=== PATIENT | female | born 1965 | race Caucasian/White ===

== ENCOUNTER 2021-02-25 12:06 | Outpatient (CLI) | payer OTHER, SELFPAY ==
--- NOTE | ~2021-02-25 | MM_ITS ---
EXAMINATION: MM screening gary BI w chrisotpher HISTORY: Screening mammogram TECHNIQUE: Craniocaudal and mediolateral oblique 3-D tomosynthesis images were obtained and synthetic 2-D images were generated. CAD analysis was submitted and interpreted. COMPARISON: , 02/03/2018, 01/06,017 bilateral screening mammogram examinations BREAST PARENCHYMAL COMPOSITION: The breasts are almost entirely fatty. FINDINGS: There is no evidence of suspicious mass, calcification, or architectural distortion to sugg est malignancy in either breast. There has been no suspicious interval change. IMPRESSION: 1. No mammographic evidence of malignancy. 2. Recommend routine screening mammography in one year. Reviewed, dictated and finalized at location A. NICAL SOLUTION ARCHITECT
== END 2021-02-25 12:07 | disposition home or self-care (01) ==
LOC: CHSIMG 12:09
PROVIDERS: PCP Internal Medicine; Visit Provider Internal Medicine
DX: Z12.31 Encounter for screening mammogram for malignant neoplasm of breast (principal)
CPT/HCPCS: 77063; 77067

== ENCOUNTER 2021-09-09 09:58 | Outpatient (CLI) | payer OTHER, SELFPAY ==
--- NOTE | ~2021-09-09 | XR_ITS ---
EXAMINATION: XR chest 2V DATE: 09/09/2021 10:13 INDICATION: Cough. Fever. TECHNIQUE: Frontal and lateral views of the chest were obtained. COMPARISON: Chest 2 views 07/13/2015 FINDINGS: The chest demonstrates clear lungs without pneumonia, pleural effusion, or pneumothorax. Th e heart size is normal. IMPRESSION: 1. No acute cardiopulmonary disease. Reviewed, dictated and finalized at location A.
[2021-09-09 10:31] LABS: Basophils Absolute Auto 0.06 K/mm3 (0.00-0.10); Basophils Percent Auto 0.6 % (0.0-1.0); Eosinophils Absolute Auto 0.37 K/mm3 (0.02-0.50); Eosinophils Percent Auto 3.9 % (1.0-6.0); Hematocrit 44.3 % (35.0-49.0); Hemoglobin 14.1 g/dL (12.0-15.0); Immature Granulocyte Absolute 0.03 K/mm3 (0.00-0.00); Immature Granulocyte Percent A 0.3 % (0.0-0.0); Immature Platelet Fraction Pct 8.7 % (1.0-7.0); Lymphocytes Absolute Auto 1.46 K/mm3 (1.10-4.50); Lymphocytes Percent Auto 15.4 % (18.0-42.0); Mean Corpuscular HGB Conc 31.8 g/dL (32.0-36.0); Mean Corpuscular Hemoglobin 28.3 pg (27.0-31.0); Mean Platelet Volume 12.4 fl (9.2-11.8); Monocytes Absolute Auto 0.42 K/mm3 (0.10-0.90); Monocytes Percent Auto 4.4 % (2.0-11.0); Neutrophils Absolute Auto 7.2 K/mm3 (1.7-7.2); Neutrophils Percent Auto 75.4 % (50.0-70.0); Platelet Count Result 111 K/mm3 (150-420); Red Blood Count 4.98 M/mm3 (4.20-5.40); Red Cell Distribution Width 13.3 % (11.6-14.4); White Blood Count 9.5 K/mm3 (4.8-10.8)
[2021-09-09 10:41] LABS: Alanine Aminotransferase 23 U/L (14-59); Albumin Level 3.7 g/dL (3.4-5.0); Alkaline Phosphatase 85 U/L (46-116); Anion Gap 6 mmol/L (8-16); Aspartate Amino Transferase 18 U/L (15-37); Bilirubin,Total 0.3 mg/dL (0.00-1.00); Blood Urea Nitrogen 11 mg/dL (7-18); Carbon Dioxide 27 mmol/L (21-32); Chloride 106 mmol/L (98-108); Estimated Glomerular Filt Rate > 60; Glucose 102 mg/dL (70-99); Osmolality Calculated 287 mOsm/kg (285-295); Potassium 4.1 mmol/L (3.5-5.1); Sodium 139 mmol/L (136-145); Total Protein 7.2 g/dL (6.4-8.2)
== END 2021-09-09 09:59 | disposition home or self-care (01) ==
LOC: CHSIMG 10:00
PROVIDERS: PCP Internal Medicine; Visit Provider Internal Medicine
DX: R05.9 Cough, unspecified (principal); R09.89 Other specified symptoms and signs involving the circulatory and respiratory systems
CPT/HCPCS: 36415; 71046; 80053; 85025; 85055

== ENCOUNTER 2021-11-04 11:05 | Outpatient (CLI) | payer OTHER, SELFPAY ==
[2021-11-04 12:33] LABS: Influenza A QL RT-PCR Negative (Negative); Influenza B QL RT-PCR Negative (Negative); SARS-CoV-2 RNA PCR Positive (Negative)
== END 2021-11-04 11:06 | disposition home or self-care (01) ==
LOC: CHSLAB 11:08
PROVIDERS: PCP Internal Medicine; Visit Provider Nurse Practitioner Family
DX: U07.1 COVID-19 (principal); J02.9 Acute pharyngitis, unspecified; R50.9 Fever, unspecified
CPT/HCPCS: 36415; 87081; 87502; 87880; C9803; U0003; U0005

== ENCOUNTER 2023-05-30 11:48 | Outpatient (CLI) | payer OTHER, SELFPAY ==
--- NOTE | ~2023-05-30 | MM_ITS ---
EXAMINATION: MM screening [facility] BI w christopher HISTORY: Screening mammogram TECHNIQUE: Craniocaudal and mediolateral oblique 3-D tomosynthesis images were obtained and synthetic 2-D images were generated. CAD analysis was submitted and interpreted. COMPARISON: 02/25/2021, 01/30/2019, 01/17/2018 BREAST PARENCHYMAL COMPOSITION: The breasts are almost entirely fatty. FINDINGS: No suspicious mass, calcification, or architectural distortion are identified in either josé luis ast to suggest malignancy. There has been no suspicious interval change. IMPRESSION: 1. No mammographic evidence of malignancy. 2. Recommend routine screening mammography in one year. BI-RADS Category 1: Negative Reviewed, dictated and finalized at location A. GER TITLE
--- NOTE | ~2023-05-30 | DEXA_ITS ---
Bone Density Report Name: DEMETRIUS RIZO Age: 57 Sex: Female Ethnicity: White Date of : 1965 Indication: postmenopausal; screening for osteoporosis; parental hip fracture; height loss; hysterectomy; Referring Provider: Uma Baltazar Study: Bone densitometry was performed. Exam Date: May 30, 2023 Accession number: [id number] Bone Density: Region BMD T-score Z-score Classification AP Spine(L1-L4) 0.941 -1.0 0.1 Normal Femoral Neck (Left) 0.634 -1.9 -0.9 Osteopenia Total Hip (Left) 0.870 -0.6 0.1 Normal Femoral Neck (Right) 0.663 -1.7 -0.6 Osteopenia Total Hip (Right) 0.811 -1.1 -0.4 Osteopenia Femoral Neck Mean 0.648 -1.8 -0.7 Osteopenia Total Hip Mean 0.840 -0.8 -0.1 Normal World Health Organization criteria for BMD impression classify patients as: Normal (T-score at or above -1.0), Osteopenia (T-score between -1.0 and -2.5), or Osteoporosis (T-score at or below -2.5). 10-year Fracture Risk(1): Major Osteoporotic Fracture 14% Hip Fracture 1.4% Reported Risk Factors: [place] (), Neck BMD=0.634, BMI=33.2, parental fracture, smoking (1) FRAX(R) Version 3.08. Fracture probability calculated for an untreated patient. Fracture probability may be lower if the patient has received treatment. Clinical Information Provided by Patient: Parent has had a hip fracture Smokes Has used the following medications: Vitamin D Has the following medical conditions: Hysterectomy Patient maximum height was 62 Menopause Age: 50 No regular weight bearing exercise Does not regularly consume dairy products Drinks caffeinated beverages Onset of menses at age 16 Number of children 2 Impression: The patient has low bone mass, based on the Left Femoral Neck T-score. The patient has risk factors, including: parental hip fracture, smoking. Discussion: BONE DENSITY IS LOW AT ONE OR MORE SKELETAL SITES. This patient's lowest T-score is low at one or more skeletal sites. It meets the World Health Organization's (WHO) criteria for ?low bone mass? (T-score between -1.0 and -2.5). The patient's 10-year risk of fracture as calculated by FRAX is less than the threshold where pharmacological therapy is recommended by the National Osteoporosis Foundation (NOF). However, all treatment decisions require clinical judgment and consideration of individual patient factors, including patient preferences, comorbidities, previous drug use, risk factors not captured in the FRAX model (e.g., frailty, falls, vitamin D deficiency, increased bone turnover, interval significant decline in bone density) and possible under or overestimation of fracture risk by FRAX. The patient should follow a healthful lifestyle (good nutrition with adequate calcium and vitamin D, and appropriate weight-jeramie
== END 2023-05-30 11:49 | disposition home or self-care (01) ==
LOC: CHSIMG 11:49
PROVIDERS: PCP Internal Medicine; Visit Provider Internal Medicine
DX: Z12.31 Encounter for screening mammogram for malignant neoplasm of breast (principal); Z78.0 Asymptomatic menopausal state; M85.89 Other specified disorders of bone density and structure, multiple sites
CPT/HCPCS: 77063; 77067; 77080

== ENCOUNTER 2024-02-17 11:23 | Outpatient (CLI) | payer OTHER, SELFPAY ==
[2024-02-17 12:12] LABS: SARS-CoV-2 RNA PCR Positive (Negative)
== END 2024-02-17 11:24 | disposition home or self-care (01) ==
LOC: CHSLAB 11:24
PROVIDERS: PCP Internal Medicine; Visit Provider Internal Medicine
DX: U07.1 COVID-19 (principal); R50.9 Fever, unspecified
CPT/HCPCS: 87635

== ENCOUNTER 2024-08-08 12:05 | Outpatient (CLI) | payer OTHER, SELFPAY ==
--- NOTE | ~2024-08-08 | MM_ITS ---
EXAMINATION: MM screening g[facility] BI w christopher HISTORY: Screening TECHNIQUE: Craniocaudal and mediolateral oblique 3-D tomosynthesis images were obtained and synthetic 2-D images were generated. CAD analysis was submitted and interpreted. COMPARISON: Comparison to multiple prior studies sequentially, with oldest reviewed study dated 12/27. BREAST PARENCHYMAL COMPOSITION: Not Dense: The breasts are almost entirely fatty. FINDINGS: There is no evidence of suspicious mass, calcification, or architectural distortion to sugg est malignancy in either breast. There has been no suspicious interval change. IMPRESSION: 1. No mammographic evidence of malignancy. 2. Recommend routine screening mammography in one year. BI-RADS Category 1: Negative Reviewed, dictated and finalized at location A.
--- OUTSIDE RECORDS SUMMARY | 2024-08-08 13:19 | XMS_ITS | Referral Summary ---
Author Organization [facility] Address [address] [address] Phone Care Team Providers Care Ecommerce Analyst Name Role Phone Modesta Genao MD Unavailable [phone] Uma Baltazar MD Primary Care Provider [phone] Allergies Active Allergy Reactions Criticality Noted Date Comments Morphine Hives,Itching Medium Nsaids (Non-Steroidal Anti-Inflammatory Drug) Stomach upset Low Penicillins Hives Medium Tramadol Nausea & Vomiting Low Medications ALPRAZolam (XANAX) 0.5 mg tablet TAKE 1/2-1 TABLET BY MOUTH EVERY 6-8 HOURS NEEDED FOR ACUTE ANXIETY 0 10/15/2016 Active lisinopril (PRINIVIL,ZESTR IL) 40 mg tablet Take 40 mg by mouth daily. 0 10/14/2016 Active acetaminophen-c odeine (TYLENOL with CODEINE #3) 300-30 mg per tablet TAKE 1 TABLET BY MOUTH EVERY 4 HOURS NEEDED 0 01/11/2017 Active Active Problems Problem Noted Date Diagnosed Date Obesity (BMI 30-39.9) 02/10/2017 Hypertension 02/10/2017 Celiac disease 08/31/2013 Overview (07/20/2016): Celiac disease History of gastric ulcer 08/31/2013 Overview (07/22/2016): Hx of gastric ulcer Social History Tobacco Use Types Packs/Day Years Used Date Smoking Tobacco: Former Cigarettes 0.5 28 0 12/17/1987 - 12/17/2015 Smokeless Tobacco: Never Tobacco Cessation:Counseling Given: Yes Comments:Smoking History Packs/day: 0 Packs Alcohol Use Standard Drinks/Week Comments Yes 0 (1 standard drink = 0.6 oz pur e alcohol) socially Personal Safety Answer Date Recorded Getting School Help Needed Not on file 06/30 Comments No Sex and Gender Information Value Date Recorded Sex Assigned at Not on file Legal Sex Female 11:57 PM INSTRUMENT AND CONTROLS TECHNICIAN Gender Identity Not on file Sexual Orientation Not on file 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 Not on file Not on file Last Filed Vital Signs Vital Sign Reading Time Taken Comments Blood Pressure 120/92 03/30/2017 1:55 PM INSTRUMENT AND CONTROLS TECHNICIAN Pulse 102 01/19/2017 3:23 PM CDT Temperature - - Respiratory Rate 16 01/19/2017 3:23 PM CDT Oxygen Saturation 98% 01/19/2017 3:23 PM CDT Inhaled Oxygen Concentration - - Weight 75.3 kg (166 lb) 03/30/2017 1:55 PM INSTRUMENT AND CONTROLS TECHNICIAN Height 156.2 cm (5' 1.5 ) 11/10/2016 2:43 PM CDT Body Mass Index 30.86 11/10/2016 2:43 PM CDT Plan of Treatment Not on file Insurance Care Teams Ecommerce Analyst Relationship Specialty Start Date End Date Uma Baltazar MD [address] [place] [address] PCP - General Internal Medicine 11/10/16 Modesta Genao MD [address] [place] [address] Obstetrics and Gynecology 11/10/16
--- OUTSIDE RECORDS SUMMARY | 2024-08-08 13:19 | XMS_ITS | Clinical Summary ---
Author Organization [facility] Address [address] [address] Phone Care Team Providers Care Mathematics Professor Name Role Phone Modesta Genao MD Unavailable [phone] Uma Baltazar MD Primary Care Provider [phone] Allergies Active Allergy Reactions Criticality Noted Date [...] 08/31/2013 Overview (07/22/2016): Hx of gastric ulcer Surgical History Surgery Date Site/Laterality Comments APPENDECTOMY 04/17/1999 - 04/16/2000 HERNIA REPAIR 04/17/2003 - 04/16/2004 TUBAL LIGATION 04/17/2003 - 04/16/2004 ENDOMETRIAL ABLATION W/ NOVASURE 04/17/2005 - 04/16/2006 SMALL BOWEL RESECTION 04/17/2003 - 04/16/2004 intestinal lipoma-->intussusceptio n HYSTERECTOMY 04/17/2016 - 04/16/2017 Pelvic pain, irregular menses - [facility]- Medical History Medical History Date Comments Celiac disease 2010 Ulcer of intestine 2002 duodenal ulce r Hypertension Anxiety Seasonal allergies Family History Medical History Relation Name Comments Diabetes type II Father Heart attack Father Hypertension Father Diabetes type II Maternal Grandfather Melanoma Maternal Grandfather COD Diabetes type II Maternal Grandmother Diabetes Mother Hypertension Mother Hypothyroidism Mother Relation Name Status Comments Father Maternal Grandfather Maternal Grandmother Mother Social History Tobacco Use Types Packs/Day Years [...] on file Legal Sex Female 11:57 PM BRAKE OPERATOR HEAVY DUTY Gender Identity Not on file Sexual Orientation Not on file 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 file Not on file Not on file Obstetrics History Para Term AB IAB SAB Ectopic Multiple Livin g Live Births 4 3 3 0 1 0 1 0 0 3 3 Date Outcome GA Total Labor Labor/2nd/3rd Weight Sex Type Anes PTL Rose A1 A5 Name Clin Term Term Term SAB Last Filed Vital Signs Vital Sign Reading Time Taken Comments Blood Pressure 120/92 03/30/2017 1:55 PM BRAKE OPERATOR HEAVY DUTY Pulse 102 01/19/2017 3:23 PM CDT Temperature - - Respiratory Rate 16 01/19/2017 3:23 PM CDT Oxygen Saturation 98% 01/19/2017 3:23 PM CDT Inhaled Oxygen Concentration - - Weight 75.3 kg (166 lb) 03/30/2017 1:55 PM BRAKE OPERATOR HEAVY DUTY Height 156.2 cm (5' 1.5 ) 11/10/2016 2:43 PM CDT Body Mass Index 30.86 11/10/2016 2:43 PM CDT Plan of Treatment Not on file Insurance [facility] H[facility]/PPO Address: [place] [id number] [place] [id number] Care Teams Mathematics Professor Relationship Specialty Start Date End Date Uma Baltazar MD [address] [place] [address] PCP - General Internal Medicine 11/10/16 Modesta Genao MD [address] [place] [address] Obstetrics and Gynecology 11/10/16
== END 2024-08-08 12:06 | disposition home or self-care (01) ==
LOC: CHSIMG 12:06
PROVIDERS: PCP Internal Medicine; Visit Provider Internal Medicine
DX: Z12.31 Encounter for screening mammogram for malignant neoplasm of breast (principal)
CPT/HCPCS: 77063; 77067

== ENCOUNTER 2024-09-23 10:20 | Outpatient (CLI) | payer OTHER, SELFPAY ==
--- NOTE | ~2024-09-23 | CT_ITS ---
CT Scan of the Chest without Contrast: Clinical Indication: Lung cancer screening, nicotine dependence Technique: Contiguous sections were acquired throughout the chest without intravenous contrast. Dose reduction technique was used on this scan by utilizing automated exposure control and iterative recon struction technique. The dose-length product (DLP) was 135.47 mGy-cm. Findings: There is no evidence of any significant mediastinal, hilar or axillary lymphadenopathy. The mediastin al soft tissues appear normal. There is no evidence of pleural or pericardial effusion. The lungs are clear. No pulmonary nodules or infiltrates are noted. Images through the upper abdomen reveal no abnormalities. Impression: Lung RADS 1: Negative. 12 month follow-up screening CT advised. Reviewed, dictated and finalized at location . Impression: Lung RADS 1: Negative. 12 month follow-up screening CT advised.
--- OUTSIDE RECORDS SUMMARY | 2024-09-23 11:35 | XMS_ITS | Referral Summary ---
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 Not on file Not on file Last Filed Vital Signs Vital Sign Reading Time Taken Comments Blood Pressure 120/92 03/30/2017 1:55 PM INSTITUTION LIBRARIAN Pulse 102 01/19/2017 3:23 PM CDT Temperature - - Respiratory Rate 16 01/19/2017 3:23 PM CDT Oxygen Saturation 98% 01/19/2017 3:23 PM CDT Inhaled Oxygen Concentration - - Weight 75.3 kg (166 lb) 03/30/2017 1:55 PM INSTITUTION LIBRARIAN Height 156.2 cm (5' 1.5) 11/10/2016 2:43 PM CDT Body Mass Index 30.86 11/10/2016 2:43 PM CDT Plan of Treatment Not on file Insurance Care Teams Liner Man Relationship Specialty Start Date End Date Uma Baltazar MD [address] [place] [address] PCP - General Internal Medicine 11/10/16 Modesta Genao MD [address] [place] [address] Obstetrics and Gynecology 11/10/16
--- OUTSIDE RECORDS SUMMARY | 2024-09-23 11:35 | XMS_ITS | Clinical Summary ---
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 Not on file Not [...] Comments Blood Pressure 120/92 03/30/2017 1:55 PM DIE MOUNTER Pulse 102 01/19/2017 3:23 PM CDT Temperature - - Respiratory Rate 16 01/19/2017 3:23 PM CDT Oxygen Saturation 98% 01/19/2017 3:23 PM CDT Inhaled Oxygen Concentration - - Weight 75.3 kg (166 lb) 03/30/2017 1:55 PM DIE MOUNTER Height 156.2 cm (5' 1.5) 11/10/2016 2:43 PM CDT Body Mass Index 30.86 11/10/2016 2:43 PM CDT Plan of Treatment Not on file Insurance Care Teams Instructor Adjunct Surgical Technician Relationship Specialty Start Date End Date Uma Baltazar MD [address] [place] [address] PCP - General Internal Medicine 11/10/16 Modesta Genao MD [address] [place] [address] Obstetrics and Gynecology 11/10/16
== END 2024-09-23 10:21 | disposition home or self-care (01) ==
LOC: CHSIMG 10:21
PROVIDERS: PCP Internal Medicine; Visit Provider Internal Medicine
DX: Z12.2 Encounter for screening for malignant neoplasm of respiratory organs (principal); Z87.891 Personal history of nicotine dependence
CPT/HCPCS: 71271

== ENCOUNTER 2024-09-24 08:22 | Outpatient (CLI) | payer OTHER, SELFPAY ==
--- OUTSIDE RECORDS SUMMARY | 2024-09-24 08:32 | XMS_ITS | Referral Summary ---
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 Not on file Not on file Last Filed Vital Signs Vital Sign Reading Time Taken Comments Blood Pressure 120/92 03/30/2017 1:55 PM TECHNICAL TRANSLATOR Pulse 102 01/19/2017 3:23 PM CDT Temperature - - Respiratory Rate 16 01/19/2017 3:23 PM CDT Oxygen Saturation 98% 01/19/2017 3:23 PM CDT Inhaled Oxygen Concentration - - Weight 75.3 kg (166 lb) 03/30/2017 1:55 PM TECHNICAL TRANSLATOR Height 156.2 cm (5' 1.5) 11/10/2016 2:43 PM CDT Body Mass Index 30.86 11/10/2016 2:43 PM CDT Plan of Treatment Not on file Insurance [facility] HMO/PPO Address: [facility] [id number] [place] [address] Care Teams Mainframe Analyst Relationship Specialty Start Date End Date Uma Baltazar MD [address] [place] [address] PCP - General Internal Medicine 11/10/16 Modesta Genao MD [address] [address] Obstetrics and Gynecology 11/10/16
--- OUTSIDE RECORDS SUMMARY | 2024-09-24 08:32 | XMS_ITS | Clinical Summary ---
Author Organization [facility] Address [address] [address] Phone Care Team Providers Care Hair Or Beauty Salon Manager Name Role Phone Modesta Genao MD Unavailable [phone] Uma Baltazar MD Primary Care Provider [phone] Allergies Active Allergy Reactions Criticality Noted Date [...] - 04/16/2017 Pelvic pain, irregular menses - [facility]- Medical History Medical History Date Comments Celiac [...] on file Legal Sex Female 11:57 PM SERVICE DELIVERY DIRECTOR Gender Identity Not on file Sexual Orientation Not on file 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 Not on file Not [...] Comments Blood Pressure 120/92 03/30/2017 1:55 PM SERVICE DELIVERY DIRECTOR Pulse 102 01/19/2017 3:23 PM CDT Temperature - - Respiratory Rate 16 01/19/2017 3:23 PM CDT Oxygen Saturation 98% 01/19/2017 3:23 PM CDT Inhaled Oxygen Concentration - - Weight 75.3 kg (166 lb) 03/30/2017 1:55 PM SERVICE DELIVERY DIRECTOR Height 156.2 cm (5' 1.5) 11/10/2016 2:43 PM CDT Body Mass Index 30.86 11/10/2016 2:43 PM CDT Plan of Treatment Not on file Insurance Care Teams Hair Or Beauty Salon Manager Relationship Specialty Start Date End Date Uma Baltazar MD [address] [place] [address] PCP - General Internal Medicine 11/10/16 Modesta Genao MD [address] [address] Obstetrics and Gynecology 11/10/16
--- NOTE | 2024-10-08 17:23 | P.SLEEP_ITS ---
Sleep Study - Home Unattended Date of Study: 09/24/24 Ordering Provider: Uma Baltazar MD Interpreting Provider: Mirian Velásquez MD Home Sleep Study Type: Watch PAT Height: 1.55 m Weight: 89.811 kg Body Mass Index: 37.4 Neck Circumference (inches): 15 [place]: 14 Reason for Sleep Study Hypersomnolence Sleep History matt Palumbo is a 59-year-old woman with loud snoring. She has a medical comorbidity of hypertension, hyperlipidemia, depression and anxiety. She does not have witnessed apneas at night however she does choking gasping, she has difficulty breathing when she is on her back and she wakes with a morning headache. She wakes with a sore throat and a dry mouth. She does not have nocturnal heartburn. She wakes at night a few times, often twice to urinate. She has never had a prior sleep study. She often has difficulty falling asleep and remaining asleep. If she wakes at night she has difficulty returning to sleep. She wakes up throughout the night. She is anxious about the quality of sleep. She has grinding and clenching of her teeth during sleep. She does not have uncomfortable feelings in her legs at night nor does she kick or move her legs excessively. She is tired and sleepy during the day, wakes up feeling not refreshed and has an urge to fall asleep during the day however she does not have drowsy driving. She does not have muscle weakness with strong emotion, fee ling paralyzed on waking or falling asleep, vivid dreams on waking or falling asleep nor does she dream during daytime naps. The patient does not work rotating shifts. She has had unintentional weight gain Normal bedtime is 11:00 p.m. falling asleep within 2 2 hours and 15 minutes, spending 6-1/2 hours in bed but usually fewer than 5 hours of sleep. On days off, bedtime is also 11:00 p.m., falling asleep within 2 hours 15 minutes however spending 10 hours in bed and 9 hours sleeping. She does not feel refreshed at all on her days off. She does not take planned naps. Her insomnia severity index score is 24, maximum, consistent with extremely severe insomnia. Her [place] Sleepiness Scale score is 14, elevated, consistent with excessive daytime sleepiness Habits:??Tobacco: Smokes fewer than 5 per day Caffeine: 1-2 cups daily Alcohol: Does not drink regularly Recreational substances: none PMFSH Past Medical History Medical History (Updated 10/10/24 @ 10:25 by Mirian Velásquez MD) Celiac disease Impaired fasting glucose Mixed hyperlipidemia Generalized anxiety disorder Hypertension Surgical History Surgical History (Updated 10/10/24 @ 10:17 by Mirian Velásquez MD) S/P endometrial ablation History of bilateral tubal ligation 2003 S/P EDITH (total abdominal hysterectomy) 01/2017; ovaries are intact Status post colon resection 2003, intussusception Status post appendectomy Family History Family History (Updated 10/10/24 @ 10:20 by Mirian Velásquez MD) Mother Hypertension Hyperlipidemia Hypothyroidism Father Hypertension Hyperlipidemia Acute myocardial infarction Grandparent Hypertension Lymphoma Diabetes mellitus Social History Social History (Updated 10/10/24 @ 10:20 by Mirian Velásquez MD) Smoking status: Current every day smoker Alcohol use details: Social drinking only Substance use: never Medications Medications: Lisinopril 40 mg a day Alprazolam 0.5 mg, a half to 1 tablet q.6 hours p.r.n. anxiety Venlafaxine 150 mg extended release daily Amlodipine 15 mg daily Chlorthalidone 25 mg daily Sleep Procedure The sleep study was completed using [employer] a technically adequate device with seven channels: peripheral arterial tone, actigraphy, body position, snore, respiratory movement, pulse oximetry, sleep staging, and heart rate. Prior to using the device, the patient received verbal and written instructions for its application and was provided with the help desk phone number for additional telephonic instruction with 24-hour availability of qualified personnel to answer questions. Sleep Architecture The total recording time is 7 hrs, 14 min. The total sleep time is 6 hrs, 24 min. Sleep latency is 10 minutes. REM latency is 69 minutes. The patient had 9 episodes of waking. Sleep architecture shows 21.2% deep sleep, 42.2% light sleep, and 36.6% stage REM. The patient spent 11.8% of total sleep time in the supine position. Sleep efficiency was 88%. Respiratory Analysis The overall AHI (pAHI 3%:) is 32.3. The central AHI is 0.2. The AHI was 24.7 in NREM and 46.3 in REM sleep. The AHI was 67.4 in Supine and 27.5 in Non-supine sleep. Percent of Tomer Cheema respirations is 0%. Oximetry Data The oxygen desaturation index (HENRY 4%:) is 16.1. The mean saturation is 93%, and the lowest saturation is 67%. Time spent with saturation < 88% is 0.8 minutes. Snoring Profile Snoring average intensity is 53 dB. The patient snored above 45 decibels for 271.1 minutes, 70.5% of sleep time. Cardiac Profile The average pulse rate is 77 beats per minutes. The lowest pulse rate is 58 bpm. The highest pulse rate reported is 93 bpm. The cardiac rhythm analysis in sleep does not show suspected atrial fibrillation. Assessment and Plan Assessment and Plan (1) Obstructive sleep apnea: Code(s): G47.33 - Obstructive sleep apnea (adult) (pediatric) Status: Acute Assessment and Plan: This home sleep test using WatchPat on 09/24/2024 shows severe obstructive sleep apnea, the apnea-hypopnea index using 3% criteria is 32.3, higher in the supine position, desaturation to 67% and loud persistent snoring. The patient has comorbidities including anxiety and depression. Given the severity of her sleep apnea, in-lab CPAP titration is preferred. I recommend full night CPAP titration with a sleep aid available, if needed, to get to sleep and stay asleep. Consider Lunesta 2 mg for her to take, at the sleep lab, not at home. Patient should not nap on the day of the study. She keeps regular hours, she appears to have excellent sleep habits. She has significant insomnia, and some of this may improve with the treatment of her obstructive sleep apnea. BMI is 37.4. Her body mass index is elevated, she is workingwith her primary care physician regarding diet and exercise. Treating obstructive sleep apnea can improve the ability to lose weight. Data The data obtained during this sleep study is adequate for interpretation. Certification This sleep study has been reviewed by a board certified sleep medicine physician.
[2024-10-10 10:23] VITALS: BMI 37.4
== END 2024-09-25 11:14 | disposition home or self-care (01) ==
LOC: ANHCSM 08:23
PROVIDERS: PCP Internal Medicine; Visit Provider Internal Medicine
DX: G47.30 Sleep apnea, unspecified (principal); G47.33 Obstructive sleep apnea (adult) (pediatric)
CPT/HCPCS: 95800

== ENCOUNTER 2024-11-07 10:17 | Outpatient (CLI) | payer OTHER, SELFPAY ==
--- OUTSIDE RECORDS SUMMARY | 2024-11-07 10:24 | XMS_ITS | Clinical Summary ---
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 Gender Identity Not on file Sexual Orientation Not on file 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 Not on file Not on file [...] Comments Blood Pressure 120/92 03/30/2017 1:55 PM CALTRANS EQUIPMENT OPERATOR Pulse 102 01/19/2017 3:23 PM CDT Temperature - - Respiratory Rate 16 01/19/2017 3:23 PM CDT Oxygen Saturation 98% 01/19/2017 3:23 PM CDT Inhaled Oxygen Concentration - - Weight 75.3 kg (166 lb) 03/30/2017 1:55 PM CALTRANS EQUIPMENT OPERATOR Height 156.2 cm (5' 1.5) 11/10/2016 2:43 PM CDT Body Mass Index 30.86 11/10/2016 2:43 PM CDT Plan of Treatment Not on file Insurance [facility]PP[facility] Address: [place] [id number] [place] [id number] Care Teams Flux Tube Attendant Relationship Specialty Start Date End Date Uma Baltazar MD [address] [place] [address] PCP - General Internal Medicine 11/10/16 Modesta Genao MD [address] [place] [address] Obstetrics and Gynecology 11/10/16
--- OUTSIDE RECORDS SUMMARY | 2024-11-07 10:24 | XMS_ITS | Referral Summary ---
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 on file Not on file Not on file Last Filed Vital Signs Vital Sign Reading Time Taken Comments Blood Pressure 120/92 03/30/2017 1:55 PM OPERATOR SPECIALIST COMMUNICATIONS Pulse 102 01/19/2017 3:23 PM CDT Temperature - - Respiratory Rate 16 01/19/2017 3:23 PM CDT Oxygen Saturation 98% 01/19/2017 3:23 PM CDT Inhaled Oxygen Concentration - - Weight 75.3 kg (166 lb) 03/30/2017 1:55 PM OPERATOR SPECIALIST COMMUNICATIONS Height 156.2 cm (5' 1.5) 11/10/2016 2:43 PM CDT Body Mass Index 30.86 11/10/2016 2:43 PM CDT Plan of Treatment Not on file Insurance Care Teams Client Service And Consulting Manager Relationship Specialty Start Date End Date Uma Baltazar MD [address] [place] [address] PCP - General Internal Medicine 11/10/16 Modesta Genao MD [address] [place] [address] Obstetrics and Gynecology 11/10/16
[2024-12-03 10:30] VITALS: BMI 33.8
--- NOTE | 2024-12-03 10:30 | P.SLEEP_ITS ---
Sleep Study Date of Study: 11/07/24 Ordering Provider: Uma Baltazar MD Interpreting Physician: Cristy Rico DO Sleep Study Type: CPAP Titration Height: 1.57 m Weight: 83.915 kg Body Mass Index: 33.8 Neck Circumference (inches): 15 [place]: 14 Reason for Sleep Study WatchPAT home study on 09/24/2024 showed an overall AHI of 32.3 with desaturation down to 67%. Sleep History Anahi Palumbo is a 59-year-old woman with loud snoring. She has a medical comorbidity of hypertension, hyperlipidemia, depression and anxiety. She does not have witnessed apneas at night however she does choking gasping, she has difficulty breathing when she is on her back and she wakes with a morning headache. She wakes with a sore throat and a dry mouth. She does not have nocturnal heartburn. She wakes at night a few times, often twice to urinate. She has never had a prior sleep study. She often has difficulty falling asleep and remaining asleep. If she wakes at night she has difficulty returning to sleep. She wakes up throughout the night. She is anxious about the quality of sleep. She has grinding and clenching of her teeth during sleep. She does not have uncomfortable feelings in her legs at night nor does she kick or move her legs excessively. She is tired and sleepy during the day, wakes up feeling not refreshed and has an urge to fall asleep during the day however she does not have drowsy driving. She does not have muscle weakness with strong emotion, feeling paralyzed on waking or falling asleep, vivid dreams on waking or falling asleep nor does she dream during daytime naps. The patient does not work rotating shifts. She has had unintentional weight gain Normal bedtime is 11:00 p.m. falling asleep within 2 2 hours and 15 minutes, spending 6-1/2 hours in bed but usually fewer than 5 hours of sleep. On days off, bedtime is also 11:00 p.m., falling asleep within 2 hours 15 minutes however spending 10 hours in bed and 9 hours sleeping. She does not feel refreshed at all on her days off. She does not take planned naps. Her insomnia severity index score is 24, maximum, consistent with extremely severe insomnia. Her [place] Sleepiness Scale score is 14, elevated, consistent with excessive daytime sleepiness Habits:??Tobacco: Smokes fewer than 5 per day Caffeine: 1-2 cups daily Alcohol: Does not drink regularly Recreational substances: none PMFSH Past Medical History Medical History Celiac disease Impaired fasting glucose Mixed hyperlipidemia Generalized anxiety disorder Hypertension Surgical History Surgical History S/P endometrial ablation History of bilateral tubal ligation 2003 S/P EDITH (total abdominal hysterectomy) 01/2017; ovaries are intact Status post colon resection 2003, intussusception Status post appendectomy Family History Family History Mother Hypertension Hyperlipidemia Hypothyroidism Father Hypertension Hyperlipidemia Acute myocardial infarction Grandparent Hypertension Lymphoma Diabetes mellitus Social History Social History Smoking status: Current every day smoker Alcohol use details: Social drinking only Substance use: never Sleep Procedure A full night CPAP Titration using the [employer] multi-channel system recorded the standard physiologic parameters including EEG, EOG, submentalis EMG, anterior tibialis EMG, EKG, body position, nasal and oral airflow using nasal pressure sensor and thermistor.? Respiratory parameters of chest and abdominal movements were recorded with Respiratory Inductance Plethysmography belts. Oxygen saturation was recorded by pulse oximetry. Video monitoring was also performed. Sleep stages, periodic limb movements, and EEG arousals were scored in 30 second epochs according to the criteria of the AASM Scoring Manual. The Apnea-Hypopnea Index was calculated using CMS guidelines for definition of hypopnea with 4% O2 desaturations while scoring respiratory events. Sleep Architecture The total recording time was 422.1 minutes.? The total sleep time was 380.0 minutes. Sleep latency was 18.4 minutes. REM latency was 161.0 minutes. Sleep efficiency was 90.0%. The patient had 26 awakenings for an awakening index of 4.1. Wake after Sleep Onset time was 24.0 minutes. The patient spent 10.0 minutes, 2.6% of total sleep time in Stage N1. The patient spent 281.5 minutes, 74.1% in Stage N2. The patient spent 13.5 minutes, 3.6% in Stage N3. The patient spent 75.0 minutes, 19.7% in Stage REM. Respiratory Analysis The patient had 12 hypopneas and 2 obstructive apneas for an overall Apnea Hypopnea Index of 2.2 events per hour. The REM Apnea Hypopnea Index was 7.2. The NREM Apnea Hypopnea Index was 1.0. The patient had a Central Apnea Hypopnea Index of 0. There was no evidence of Tomer-Cheema Respirations. The patient was started on CPAP 5 cm H2O and titrated to CPAP 13 cm H2O due to hypopneas. The patient was able to fall asleep starting on CPAP 5 cm H2O. The patient was able to achieve REM sleep starting on CPAP 9 cm H2O. The patient was able to achieve a residual AHI less than 5 with both NREM and REM sleep on 9 cm H2O and 12 cm H2O. On CPAP 12 cm H2O, the patient spent 112.5 minutes in NREM and 48.5 minutes in REM with 1 hypopnea, resulting in an AHI of 0.4. The patient had a sleep efficiency of 92.5% on this pressure setting. Arousals There were 32 total arousals for an arousal index of 5.1. There were 21 spontaneous arousals for an index of 3.3. ?There were 2 arousals due to respiratory events for an index of 0.3. There were 0 arousals due to periodic limb movements for an index of 0.? There were 4 arousals due to isolated limb movements for an index of 0.6. Periodic Limb Movements The patient had 15 isolated limb movements with an index of 2.4. The patient had 0 periodic limb movements with index of 0. Patient had a total of 15 limb movements with a total limb movement index of 2.4. Oximetry Data The patient had an average oxygen saturation of 91.8% in sleep with a minimum oxygen saturation of 85.0% and a maximum oxygen saturation of 97.0%. The patient had 14 oxygen desaturations that were 4% or greater resulting in an Oxygen Desaturation Index of 2.2.? The patient spent 59 minutes, 14% of total sleep time with an oxygen saturation below 88%. Snoring Profile Moderate to loud snoring was present in the beginning of the study. The snoring resolved once the patient was titrated to CPAP 12 cm H2O. Cardiac Profile The EKG showed normal sinus rhythm. No arrhythmias or premature beats were seen. The patient had an average pulse rate of 69.7 bpm with a minimum pulse rate of 59.0 bpm and a maximum pulse rate of 86.0 bpm. ? EEG Profile No signs of seizure activity seen. Alpha intrusion was present throughout the study. Assessment and Plan Assessment and Plan (1) Obstructive sleep apnea: Code(s): G47.33 - Obstructive sleep apnea (adult) (pediatric) Status: Acute Assessment and Plan: The patient was started on CPAP 5 cm H2O and titrated to CPAP 13 cm H2O due to hypopneas. We were able to find a pressure setting that resolved the patient's sleep apnea with a high sleep efficiency. I recommend that the patient be prescribed CPAP 12 cm H2O, size medium Resmed AirTouch F20 full face mask, CPAP filters/tubing and heated humidity. This should be used with all episodes of sleep.? Compliance should be reviewed within 31-90 days of starting therapy for usage greater than 4 hours per night greater than 70% of the nights. The patient should be asked about symptoms such as?excessive daytime sleepiness, quality of sleep, decreased nocturia, increased?mental functioning such as memory, mood, and concentration. Data The data obtained during this sleep study is adequate for interpretation. Certification This sleep study has been reviewed by a board certified sleep medicine physician.
== END 2024-11-08 06:40 | disposition home or self-care (01) ==
LOC: ANHCSM 10:19
PROVIDERS: PCP Internal Medicine; Visit Provider Internal Medicine
DX: G47.33 Obstructive sleep apnea (adult) (pediatric) (principal)
CPT/HCPCS: 95811